=== PATIENT | female | born 1970 | race African-American/Black ===

== ENCOUNTER 2017-11-12 08:15 | Emergency (ER) | payer MEDICAID ==
[~2017-11-12] VITALS: Ht 160 cm; Wt 55.0 kg
[2017-11-12 09:05] LABS: HEMATOCRIT. 33.5 % (36.0-48.0); HEMOGLOBIN. 10.7 g/dL (12.0-16.0); MEAN CORPUSCULAR HEMOGLOBIN 21.4 pg (28.0-32.0); MEAN PLATELET VOLUME 8.5 fl (7.4-10.4); PLATELET 259 x1000/uL (130-400); RED BLOOD CELL COUNT 5.01 mill/uL (4.2-5.4); RED CELL DISTRIBUTION WIDTH 16.3 % (11.6-14.6)
[2017-11-12 09:15] LABS: CHLORIDE 106 mEq/L (98-107)
[2017-11-12 09:16] LABS: ETHANOL BLOOD < 10 mg/dL
[2017-11-12 09:19] LABS: HCG SCREEN NEGATIVE
[2017-11-12 09:46] LABS: PLATELET ESTIMATE NORMAL
[2017-11-12 13:32] LABS: *AMPHETAMINES SCREEN URINE NEGATIVE (NEGATIVE); *BARBITURATES SCREEN URINE NEGATIVE (NEGATIVE)
[2017-11-12 13:33] LABS: METHADONE URINE SCREEN NEGATIVE (NEGATIVE); OPIATES URINE SCREEN NEGATIVE (NEGATIVE); PHENCYCLIDINE URINE SCREEN NEGATIVE (NEGATIVE)
[2017-11-12 13:37] LABS: *BENZODIAZEPINES SCREEN URINE NEGATIVE (NEGATIVE)
[2017-11-12 13:39] LABS: *COCAINE SCREEN URINE PRESUMTIVE POSITIVE (NEGATIVE); CANNABINOID URINE SCREEN PRESUMTIVE POSITIVE (NEGATIVE)
[2017-11-12] MEDS ORDERED: ZIPRASIDONE MESYLATE 20MG/VIAL IM ONE (23:00)
[2017-11-13 13:51] VITALS: BP 102/62
== END 2017-11-13 14:29 ==
LOC: ER 08:15
DX: F12.10 Cannabis abuse, uncomplicated (principal); F14.10 Cocaine abuse, uncomplicated; F32.9 Major depressive disorder, single episode, unspecified; Z88.0 Allergy status to penicillin
CPT/HCPCS: 36415; 80048; 80305; 80307; 80329; 81025; 84703; 85025; 96372; 99284; G0482; J3486; Z7610

== ENCOUNTER 2017-12-05 10:06 | Emergency (ER) | payer MEDICAID ==
[~2017-12-05] VITALS: Ht 170.2 cm; Wt 68.0 kg
[2017-12-05] MEDS ORDERED: IBUPROFEN 600MG TABLET PO ONE (10:45)
[2017-12-05 12:31] LABS: CHLORIDE 106 mEq/L (98-107); HEMATOCRIT. 31.3 % (36.0-48.0); HEMOGLOBIN. 9.9 g/dL (12.0-16.0); MEAN CORPUSCULAR HEMOGLOBIN 21.5 pg (28.0-32.0); MEAN CORPUSCULAR VOLUME 67.9 fL (81.0-99.0); MEAN PLATELET VOLUME 8.5 fl (7.4-10.4); PLATELET 220 x1000/uL (130-400); RED BLOOD CELL COUNT 4.61 mill/uL (4.2-5.4); RED CELL DISTRIBUTION WIDTH 17.6 % (11.6-14.6)
[2017-12-05 12:40] LABS: *BARBITURATES SCREEN URINE NEGATIVE (NEGATIVE); *BENZODIAZEPINES SCREEN URINE NEGATIVE (NEGATIVE)
[2017-12-05 12:50] LABS: *AMPHETAMINES SCREEN URINE NEGATIVE (NEGATIVE); METHADONE URINE SCREEN NEGATIVE (NEGATIVE); OPIATES URINE SCREEN NEGATIVE (NEGATIVE); PHENCYCLIDINE URINE SCREEN NEGATIVE (NEGATIVE)
[2017-12-05 12:50] LABS: ETHANOL BLOOD < 10 mg/dL
[2017-12-05 12:52] LABS: *COCAINE SCREEN URINE PRESUMTIVE POSITIVE (NEGATIVE); CANNABINOID URINE SCREEN PRESUMTIVE POSITIVE (NEGATIVE)
[2017-12-05] MEDS ORDERED: DEXTROSE 50% WATER 50ML SYRINGE IV ONE ×2 (12:56→13:00)
[2017-12-05 13:38] LABS: PLATELET ESTIMATE NORMAL
[2017-12-05 21:05] LABS: KETONES URINE TRACE (NEGATIVE); LEUKOCYTE ESTERASE URINE 1+ (NEGATIVE); NITRITE URINE NEGATIVE (NEGATIVE); OCCULT BLOOD URINE 3+ (NEGATIVE); PROTEIN URINE 1+ (NEGATIVE); SPECIFIC GRAVITY URINE 1.021 (1.005-1.030)
[2017-12-05 21:09] LABS: COLOR URINE BLOODY (YELLOW)
[2017-12-05 21:10] LABS: CLARITY URINE HAZY (CLEAR)
[2017-12-06 02:00] VITALS: BP 132/86
== END 2017-12-06 02:24 ==
LOC: ER 10:06
DX: R45.851 Suicidal ideations (principal); F14.10 Cocaine abuse, uncomplicated; F12.10 Cannabis abuse, uncomplicated; J45.909 Unspecified asthma, uncomplicated; F32.9 Major depressive disorder, single episode, unspecified; D64.9 Anemia, unspecified; Z88.0 Allergy status to penicillin
CPT/HCPCS: 36415; 80048; 80305; 80307; 80329; 81003; 81025; 82962; 85025; 93005; 96374; 99285; G0482; J7030; Z7610

== ENCOUNTER 2019-06-20 06:24 | Emergency (ER) | payer MEDICAID ==
[~2019-06-20] VITALS: Ht 162.6 cm; Wt 63.0 kg
[~2019-06-20 06:24] MED LIST: ELVI1TAB3 MT; FERR324T4 MT
[2019-06-20 07:19] LABS: CHLORIDE 108 mEq/L (98-107)
[2019-06-20 07:23] LABS: ETHANOL BLOOD < 10 mg/dL
[2019-06-20 07:24] LABS: HEMATOCRIT. 30.1 % (36.0-48.0); HEMOGLOBIN. 9.4 g/dL (12.0-16.0); MEAN CORPUSCULAR HEMOGLOBIN 20.3 pg (28.0-32.0); MEAN CORPUSCULAR VOLUME 65.2 fL (81.0-99.0); MEAN PLATELET VOLUME 8.1 fl (7.4-10.4); PLATELET 284 x1000/uL (130-400); RED BLOOD CELL COUNT 4.62 mill/uL (4.2-5.4); RED CELL DISTRIBUTION WIDTH 19.1 % (11.6-14.6)
[2019-06-20 07:47] LABS: HCG SCREEN NEGATIVE
[2019-06-20 07:58] LABS: CLARITY URINE CLEAR (CLEAR); COLOR URINE YELLOW (YELLOW); KETONES URINE 1+ (NEGATIVE); LEUKOCYTE ESTERASE URINE 2+ (NEGATIVE); NITRITE URINE NEGATIVE (NEGATIVE); OCCULT BLOOD URINE TRACE (NEGATIVE); PROTEIN URINE 1+ (NEGATIVE); SPECIFIC GRAVITY URINE 1.026 (1.005-1.030)
[2019-06-20 08:08] LABS: *AMPHETAMINES SCREEN URINE NEGATIVE (NEGATIVE); *BARBITURATES SCREEN URINE NEGATIVE (NEGATIVE); *BENZODIAZEPINES SCREEN URINE NEGATIVE (NEGATIVE); METHADONE URINE SCREEN NEGATIVE (NEGATIVE); OPIATES URINE SCREEN NEGATIVE (NEGATIVE)
[2019-06-20 08:31] LABS: PLATELET ESTIMATE NORMAL
[2019-06-20 08:33] LABS: *COCAINE SCREEN URINE PRESUMTIVE POSITIVE (NEGATIVE); CANNABINOID URINE SCREEN PRESUMTIVE POSITIVE (NEGATIVE); PHENCYCLIDINE URINE SCREEN PRESUMTIVE POSITIVE (NEGATIVE)
[2019-06-20] MEDS: QUETIAPINE FUMARATE 50MG TABLET PO SCH (09:03)
[2019-06-20] MEDS: NITROFURANTOIN 100MG M/M CAPSULE PO SCH (14:00)
[2019-06-20] MEDS ORDERED: QUETIAPINE FUMARATE 50MG TABLET PO SCH (21:00)
[2019-06-21] MEDS: QUETIAPINE FUMARATE 50MG TABLET PO SCH (08:43)
[2019-06-21] MEDS: NITROFURANTOIN 100MG M/M CAPSULE PO SCH (08:49)
[2019-06-21 12:34] VITALS: BP 105/78
== END 2019-06-21 13:12 ==
LOC: ER 06:24
DX: R45.851 Suicidal ideations (principal); F15.10 Other stimulant abuse, uncomplicated; J45.909 Unspecified asthma, uncomplicated; Z91.14 Patient's other noncompliance with medication regimen; Z88.0 Allergy status to penicillin; Z79.899 Other long term (current) drug therapy
CPT/HCPCS: 36415; 80053; 80305; 80320; 81003; 81025; 84703; 85025; 87086; 99285; Z7610; G0480

== ENCOUNTER 2019-09-14 16:40 | Emergency (ER) | payer MEDICAID ==
[~2019-09-14] VITALS: Ht 170.2 cm; Wt 59.0 kg
[2019-09-14 17:46] LABS: HEMATOCRIT. 25.6 % (36.0-48.0); MEAN CORPUSCULAR HEMOGLOBIN 20.5 pg (28.0-32.0); MEAN CORPUSCULAR VOLUME 65.9 fL (81.0-99.0); MEAN PLATELET VOLUME 8.6 fl (7.4-10.4); PLATELET 318 x1000/uL (130-400); RED BLOOD CELL COUNT 3.89 mill/uL (4.2-5.4); RED CELL DISTRIBUTION WIDTH 20.8 % (11.6-14.6)
[2019-09-14 17:48] LABS: CHLORIDE 108 mEq/L (98-107)
[2019-09-14 17:49] LABS: HCG SCREEN NEGATIVE
[2019-09-14 18:09] LABS: PLATELET ESTIMATE NORMAL
[2019-09-14] MEDS ORDERED: OLANZAPINE 10 MG/VIAL IM ONE (20:15)
[2019-09-15 15:44] LABS: CLARITY URINE CLEAR (CLEAR); COLOR URINE YELLOW (YELLOW); KETONES URINE NEGATIVE (NEGATIVE); LEUKOCYTE ESTERASE URINE 1+ (NEGATIVE); NITRITE URINE NEGATIVE (NEGATIVE); OCCULT BLOOD URINE NEGATIVE (NEGATIVE); PH URINE 8.5 (4.5-8.0); PROTEIN URINE NEGATIVE (NEGATIVE); SPECIFIC GRAVITY URINE 1.013 (1.005-1.030)
[2019-09-15 15:56] LABS: *AMPHETAMINES SCREEN URINE NEGATIVE (NEGATIVE); *BARBITURATES SCREEN URINE NEGATIVE (NEGATIVE); *BENZODIAZEPINES SCREEN URINE NEGATIVE (NEGATIVE)
[2019-09-15 15:57] LABS: CANNABINOID URINE SCREEN NEGATIVE (NEGATIVE); METHADONE URINE SCREEN NEGATIVE (NEGATIVE); OPIATES URINE SCREEN NEGATIVE (NEGATIVE)
[2019-09-15 16:04] LABS: *COCAINE SCREEN URINE PRESUMTIVE POSITIVE (NEGATIVE); PHENCYCLIDINE URINE SCREEN PRESUMTIVE POSITIVE (NEGATIVE)
[2019-09-16] MEDS ORDERED: BACITRACIN 15GM TUBE TOP ONE (12:30)
[2019-09-16 13:38] VITALS: BP 108/62
== END 2019-09-16 13:38 | disposition home or self-care (01) ==
LOC: ER 16:40
DX: T50.901A Poisoning by unspecified drugs, medicaments and biological substances, accidental (unintentional), initial encounter (principal); Y92.9 Unspecified place or not applicable; D50.9 Iron deficiency anemia, unspecified; R45.851 Suicidal ideations; J45.909 Unspecified asthma, uncomplicated; F32.9 Major depressive disorder, single episode, unspecified; D64.9 Anemia, unspecified; F17.200 Nicotine dependence, unspecified, uncomplicated; Z88.0 Allergy status to penicillin; Z71.6 Tobacco abuse counseling
CPT/HCPCS: 36415; 80053; 81025; 84484; 84703; 85025; 93005; 99285; 99406; J3490

== ENCOUNTER 2019-10-31 00:21 | Emergency (ER) | payer MEDICAID ==
[~2019-10-31] VITALS: Ht 165.1 cm; Wt 50.0 kg
[2019-10-31] MEDS ORDERED: HYDROCODONE/ACETAMINOPHEN 5/325MG TABLET PO ONE (01:15)
[2019-10-31 01:24] VITALS: BP 138/86
== END 2019-10-31 04:40 | disposition home or self-care (01) ==
LOC: ER 00:21
DX: S00.93XA Contusion of unspecified part of head, initial encounter (principal); S00.10XA Contusion of unspecified eyelid and periocular area, initial encounter; F12.10 Cannabis abuse, uncomplicated; F14.10 Cocaine abuse, uncomplicated; J45.909 Unspecified asthma, uncomplicated; Z88.0 Allergy status to penicillin; Z98.890 Other specified postprocedural states; X58.XXXA Exposure to other specified factors, initial encounter; Y93.89 Activity, other specified; Y92.89 Other specified places as the place of occurrence of the external cause; Y99.8 Other external cause status
CPT/HCPCS: 70486; 73090; 99285